=== PATIENT | female | born 1995 | race Caucasian/White ===

== ENCOUNTER 2021-03-15 18:41 | Emergency (ER) | payer BC, SELFPAY ==
[2021-03-15 18:57] VITALS: BP 125/73; PULSE 92; RESP 18; TEMP 36.7; O2SAT 98; BMI 25.0
[2021-03-15 19:36] VITALS: BP 150/76; PULSE 79; RESP 16; TEMP 36.7; O2SAT 98; BMI 25.2
[2021-03-15 19:52] LABS: Microscopic, Urine URINE MICROSCOPIC (MICROSCOPIC)
[2021-03-15 19:54] LABS: Appearance,Urine SL CLOUDY (Clear); Bilirubin,Urine Negative (Negative); Blood, Urine 1+ (Negative); Color,Urine YELLOW (Yellow); Glucose,Urine (UA) Negative (Negative); Ketones,Urine Negative (Negative); Leukocyte Esterase,Urine Negative (Negative); Nitrate,Urine Negative (Negative); Protein,Urine Negative (Negative); Specific Gravity, Urine 1.025 (1.005-1.030); Urobilinogen,Urine 0.2 EU/dl (0.2)
[2021-03-15 19:56] LABS: Urine Pregnancy, HCG Qual. Negative (Negative)
[2021-03-15 19:58] LABS: Bacteria,Urine Trace /lpf
--- NOTE | 2021-03-15 20:04 | [facility].EDGENADL ---
ED Disposition Clinical Impression: Vasovagal syncope Disposition: Home, Self-Care Condition on Discharge: Good Instructions: DI for Syncope in Adults (Fainting) Additional Instructions: You have been evaluated for syncope, likely vasovagal. Please follow up with your primary care doctor in 1-2 days. Return to the emergency department at once for any new or worsening symptoms. Referrals: Deirdre Pleitez MD [Primary Care Provider] - Time of Disposition: 20:08 - Critical Care Critical Care Time: No Attestation: On 03/15/21, the high probability of a clinically significant, sudden or life threatening deterioration of the following system(s) required my full and direct attention, intervention and personal management. The time I documented below is in addition to time spent performing reported procedures but includes the following listed in this critical care notation. Medical Decision Making - Medical Records Medical records reviewed: Yes: I reviewed the patient's medical records. - Stephen Inquiry Pt receiving controlled substance: No Vital Signs: 03/15/21 18:57 03/15/21 19:36 03/15/21 21:50 Temperature 98.0 F 98.0 F 98.2 F Temperature Source Oral Oral Oral Pulse Rate 73 Pulse Rate [Right Brachial] 92 H 79 Respiratory Rate 18 16 17 Blood Pressure 112/73 Blood Pressure [Right Arm] 125/73 150/76 H Blood Pressure Mean [Right Arm] 90 100 Blood Pressure Source Automatic Cuff Blood Pressure Source [Right Arm] Automatic Cuff Automatic Cuff Blood Pressure Position Sitting Blood Pressure Position [Right Arm] Sitting Sitting 02 Sat by Pulse Oximetry 98 98 Oxygen Delivery Method Room Air Room Air Room Air - Lab Data Lab Results 03/15/21 19:45: WBC 13.9 H, RBC 4.58, Hgb 13.8, Hct 42.3, MCV 92.4, MCH 30.1, MCHC 32.5, RDW 12.6, Plt Count 330, MPV 7.5, Neut % (Auto) 83.9 H, Lymph % (Auto) 11.9, [place] % (Auto) 3.6, Eos % (Auto) 0.1, Baso % (Auto) 0.5, Neut # (Auto) 11.7 H, Lymph # (Auto) 1.6, [place] # (Auto) 0.5, Eos # (Auto) 0.0, Baso # (Auto) 0.1 03/15/21 19:45: Sodium 138, Potassium 3.8, Chloride 104, Carbon Dioxide 25, Anion Gap 12.8, BUN 13, Creatinine 0.80, Estimated Creat Clear 117, Estimated GFR 87, Est GFR ( Amer) 106, Glucose 131 H, Calcium 9.4, Total Bilirubin 0.3, AST 27, ALT 18, Alkaline Phosphatase 78, Total Protein 8.0, Albumin 4.5, Globulin 3.5 H, Albumin/Globulin Ratio 1.3, Lipase 42 03/15/21 19:48: Urine Color Yellow, Urine Appearance Sl cloudy, Urine pH 7.0, Ur Specific [place] 1.025, Urine Protein Negative, Urine Glucose (UA) Negative, Urine Ketones Negative, Urine Blood 1+, Urine Nitrate Negative, Urine Bilirubin Negative, Urine Urobilinogen 0.2, Ur Leukocyte Esterase Negative, Urine RBC 3-5, Urine WBC 3-5, Ur Squamous Epith Cells 3-5, Urine Bacteria Trace 03/15/21 19:48: Urine HCG, Qual Negative Result diagrams: 03/15/21 19:45 03/15/21 19:45 Orders (Tests/Meds): ED MEDICATIONS Generic Name Dose Route Start Last Admin Trade Name Freq PRN Reason Stop Dose Admin Sodium Chloride 2,000 mls @ 999 mls/hr 03/15/21 20:00 Sod Chlor 0.9% 1000ml Bag IV 03/15/21 22:00 .[id number] YANI Discontinued Medications Generic Name Dose Route Start Last Admin Trade Name Freq PRN Reason Stop Dose Admin Ondansetron HCl 4 mg 03/15/21 19:47 03/15/21 19:51 Ondansetron 4mg/2ml Vial IV 03/15/21 19:48 Not Given ONCE ONE - ECG Data Tracing #1 sinus rhythm with rate 97 bpm. QRS 78. QTc 502 Medical Decision Narrative: In summary this is a 25yo female presenting to the emergency department after a syncopal episode. Patient clinically stable on arrival. Vital signs within normal limits. Most likely diagnosis for syncope is vasovagal. Cannot exclude cardiac arrhythmia or allergic reaction. Will obtain CBC, BMP, test, EKG. Patient given IV fluids. Initial laboratory results are reassuring. negative. No abnormality of glucose or electrolytes. E
[2021-03-15 20:11] LABS: Basophils # 0.1 K/mm3 (0-0.2); Basophils % 0.5 % (0.1-2.0); Eosinophils % 0.1 % (0.1-12.0); Hematocrit 42.3 % (37.0-47.0); Hemoglobin 13.8 g/dL (12.2-16.2); Lymphocytes # 1.6 K/mm3 (0.7-4.5); Lymphocytes % 11.9 % (10-50); Mean Corpuscular HGB Conc 32.5 g/dL (31.8-35.4); Mean Corpuscular Hemoglobin 30.1 pg (27.0-31.2); Mean Corpuscular Volume 92.4 fl (81-99); Mean Platelet Volume 7.5 fl (7.4-10.4); Monocytes # 0.5 K/mm3 (0.1-1.0); Monocytes % 3.6 % (1.7-9.3); Neutrophils # 11.7 K/mm3 (1.8-7.8); Neutrophils % 83.9 % (37.0-80.0); Platelet Count 330 K/mm3 (142-424); Red Blood Count 4.58 M/mm3 (4.20-5.40); Red Cell Distribution Width 12.6 % (11.5-17.5); White Blood Count 13.9 K/mm3 (4.8-10.8)
--- NOTE | 2021-03-15 20:13 | ECG_ITS ---
APPROVED REPORT Exam: Resting ECG HR:83 bpm ECG Measurements Heart Rate 83 AXES NC 158 P 58 QRSd 82 QRS 86 QT 390 T 37 QTc 458 Conclusion Normal sinus rhythm Normal ECG Electronically signed by : Adrian Hester MD 03/16/2021 09:10:57
[2021-03-15 20:23] LABS: Alanine Aminotransferase 18 U/L (12-78); Albumin Level 4.5 g/dl (3.5-5.0); Albumin/Globulin Ratio 1.3 (1.1-1.8); Alkaline Phosphatase 78 U/L (38-126); Anion Gap 12.8 mEq/L (5-15); Aspartate Amino Transferase 27 U/L (14-36); Bilirubin,Total 0.3 mg/dl (0.2-1.3); Blood Urea Nitrogen 13 mg/dl (7-17); Calcium 9.4 mg/dl (8.4-10.2); Carbon Dioxide 25 mmol/L (22.0-30.0); Chloride 104 mmol/L (98-107); Creatinine Clearance Estimated 117 mL/min (50-200); Estimated Glomerular Filt Rate 87 ml/min (>60); GFR (African American) 106 ML/MIN (>60); Globulin 3.5 g/dL (1.3-3.2); Glucose 131 mg/dl (74-100); Lipase 42 U/L (23-300); Potassium 3.8 mmoL/L (3.5-5.1); Sodium 138 mmol/L (136-145)
[2021-03-15 21:50] VITALS: BP 112/73; PULSE 73; RESP 17; TEMP 36.8; O2SAT 98
[2021-03-15 22:01] VITALS: BP 129/81; PULSE 94; RESP 14; TEMP 36.6; O2SAT 99
== END 2021-03-15 21:54 | disposition home or self-care (01) ==
PROVIDERS: Emergency Provider Emergency Medicine; PCP Family Medicine
DX: R55 Syncope and collapse (principal); T50.Z95A Adverse effect of other vaccines and biological substances, initial encounter
CPT/HCPCS: 80053; 81001; 81025; 83690; 85025; 93005; 96365; 96366; 96375; 99282

== ENCOUNTER → 2021-06-04 12:36 | Outpatient (CLI) | payer BC, SELFPAY | PROVIDERS: Visit Provider Nurse Practitioner | DX: Z20.822 Contact with and (suspected) exposure to COVID-19 (principal) | CPT/HCPCS: C9803; U0003; U0005 ==